=== PATIENT | male | born 1955 | race Caucasian/White ===

== ENCOUNTER 2021-11-08 16:28 | Inpatient (IN) | payer MEDICARE ==
[2021-11-08] MEDS ORDERED: HEPARIN SODIUM 1,000 UN/ML (10ML VL) ONE ×2 (16:49→22:51)
[2021-11-08] MEDS ORDERED: fentaNYL (PF) 50 MCG/ML 2 ML AMP ONE (16:50)
[2021-11-08] MEDS ORDERED: LIDOCAINE 1% INJ 10MG/ML (30 ML VIAL-PF) SQ ONE ×3 (16:52→22:53)
[2021-11-08] MEDS ORDERED: fentaNYL (PF) 50 MCG/ML 2 ML AMP IV ONE (16:54)
[2021-11-08] MEDS ORDERED: SODIUM CHLORIDE 0.9% 1,000 ML IV ONE (17:00)
[2021-11-08] MEDS ORDERED: CLOPIDOGREL 75 MG TAB ONE (17:04)
[2021-11-08] MEDS ORDERED: CLOPIDOGREL 75 MG TAB PO ONE (17:06)
[2021-11-08] MEDS ORDERED: HEPARIN SODIUM 1,000 UN/ML (10ML VL) IV ONE (17:08)
[2021-11-08] MEDS ORDERED: IOPAMIDOL-370 125ML BTL INJ ONE (17:23)
[2021-11-08] MEDS ORDERED: NITROGLYCERIN 1000MCG/10ML SYRINGE INTRACORON ONE (17:26)
[2021-11-08] MEDS ORDERED: FUROSEMIDE 10 MG/ML 4 ML VIAL ONE (17:33)
[2021-11-08] MEDS ORDERED: FUROSEMIDE 10 MG/ML 4 ML VIAL IV ONE (17:34)
[2021-11-08] MEDS ORDERED: IOPAMIDOL-370 100ML BTL INJ ONE (17:41)
[2021-11-08] MEDS ORDERED: RX INFO: IV CONTRAST WAS GIVEN 1 EACH MISC MISCELLANE PRN (17:52)
[2021-11-08] MEDS ORDERED: NITROGLYCERIN SL TABS 0.4 MG TAB SUBLINGUAL PRN (17:52)
[2021-11-08] MEDS ORDERED: ATROPINE SULFATE 0.1 MG/ML 10ML SYRINGE IV PRN (17:52)
[2021-11-08] MEDS ORDERED: MAG HYDROX/AL HYDROX/SIMETH 30 ML CUP PO PRN (17:52)
[2021-11-08] MEDS ORDERED: ZOLPIDEM 5 MG TAB PO PRN (17:52)
[2021-11-08] MEDS ORDERED: SPIRONOLACTONE 25 MG TAB PO SCH (18:00)
[2021-11-08] MEDS ORDERED: SODIUM CHLORIDE 0.9% 1,000 ML in EMPTY BAG 1 BAG IV SCH (18:00)
--- NOTE | 2021-11-08 18:01 | P.CRDCN ---
History of Present Illness Consult date: 11/08/21 History of present illness: History of Present Illness: The patient is a 66-year-old male with a history of hyperlipidemia, pre- diabetes, family history of premature CAD who presented to [facility] with an acute episode of chest discomfort, his EKG showed ST segment elevation inferiorly with ST depression anteriorly. The patient was transferred to [facility] to undergo emergent cardiac catheterization. He had a similar episode for the first time early this week that subsequently resolved and reoccurred today at 1 PM with radiation to the left arm and symptoms of fatigue. The patient is usually active physically, has no exertion al chest discomfort or dyspnea on exertion. He denies any PND, orthopnea or peripheral edema. He has no history of arrhythmia, dizziness or syncope. Medications: Lipitor 10 mg daily Review of Systems: Respiratory: No history of asthma, bronchitis or recent cough. GI: No nausea or vomiting . No history of peptic ulcer disease. No recent GI bleed. : No hematuria or dysuria. Nervous System: No stroke or seizure. Physical Examination: 66-year-old male, evaluated in the cardiac catheterization laboratory with mild discomfort ,Blood pressure 110/70, Heart rate is 105 Head: Normocephalic. Eyes: Sclerae nonicteric. Neck: Good carotid upstroke, no bruit, no jugular venous distention. Lungs: Clear to auscultation anteriorly. Heart: Regular rate and rhythm, S1-S2, no S3, no rub. Holosystolic murmur at the apex, 3/6. Abdomen: Soft nontender, positive bowel sounds no organomegaly. Extremities: No edema, intact distal pulses. Labs: Creatinine 1.3, GFR 55 potassium 4.3 EKG: Sinus mechanism with ST segment elevation in the inferior leads and ST segment depression in the anterior precordial leads Impression: 1. Acute inferoposterior myocardial infarction, patient had an episode of chest discomfort for days ago. The patient has sinus tachycardia 2. Mitral regurgitation murmur, rule out ischemic versus ruptured papillary muscle 3. History of hyperlipidemia 4. Pre-diabetes Plan: 1. Proceed with emergent cardiac catheterization and angioplasty, the procedure as well as the risks and the complications were discussed with the patient who was in full understanding and agreement 2. Obtain an echocardiogram with Doppler 3. Depending on the results of his cardiac catheterization further recommendations will be made 4. Prognosis is guarded 5. Thank you for this consult we will follow with you. Medications and Allergies Allergies Allergy/AdvReac Type Severity Reaction Status Date / Time No Known Allergies Allergy Verified 11/08/21 16:59 Physical Exam Vitals: Intake and Output 11/08/21 11/08/21 11/08/21 06:59 14:59 22:59 Other: Weight 83 kg Results Intake and Output 11/08/21 11/08/21 11/08/21 06:59 14:59 22:59 Other: Weight 83 kg Patient Weight 11/09/21 06:59 Weight 83 kg
--- NOTE | 2021-11-08 18:11 | P.CARDCATH ---
Date of Procedure: 11/08/21 Description of Procedure: Cardiac Catheterization: The patient is a 66-year-old male who presented with an acute inferior posterior myocardial infarction. He has sinus tachycardia at baseline Recommendations were made regarding cardiac catheterization, the risks and the complications were discussed with the patient who is in full understanding and agreement. Procedure Description: Patient was brought to pathology laboratory aide in fasting semi-sedated state after receiving Fentanyl and Benadryl achieiving moderate conscious sedated state. Using Xylocaine Anesthesia and Seldinger technique, a 6-[place] sheath was introduced in the right radial artery . Subsequently, selective coronary angiography was performed using a 6-[place] 4 bend right Rickey guiding catheter for images of the right coronary artery and 5-[place] 3.5 and left Rickey catheter. Multiple views of the coronary artery including hemiaxial views were obtained. The 5-[place] pigtail catheter was used to cross the aortic valve and LVEDP was calculated. An VILLASENOR view of the left ventricle was obtained. Following that, catheter and sheath were removed. Hemostasis was obtained with deployment of TR band . There was no immediate complication. Patient was returned to room in stable condition. Of note, the patient received a total of 5000 units of intravenous heparin as well as intra- arterial verapamil. There was no immediate complications. The patient received Plavix, his ACT was followed. At the end of the procedure there was resolution of his arm and chest discomfort with improvement in his EKG changes. Findings: Left main: This is a size vessel, bifurcating LAD and left circumflex, left main has no high-grade stenosis LAD: This is a size vessel, reaching to the apex giving rise to 3 diagonal branch. In the mid LAD at the takeoff of the second diagonal branch extending to the takeoff of the third diagonal branch there is a 95% stenosis, the rest of the vessel has no high-grade stenosis. Left circumflex: This is a nondominant vessel giving rise to 2 obtuse marginal branch, the first one is proximal, the left circumflex and its branches have no evidence of high-grade stenosis RCA: In this vessel is totally occluded in the distal segment with no antegrade flow Left Ventriculogram: Left ventriculogram revealed inferior wall severe hypokinesis to akinesis there was a suggestion of 2-3+ mitral regurgitation. Ejection fraction is about 35%. Hemodynamics: There was no gradient across the aortic valve, LVEDP 25 mmHg Angioplasty: After cannulating the right coronary artery 0.014 whisper J-wire with a straight fine cross were used to cross the total occlusion, the wire was exchanged to a 0.014 BMW wire was positioned distally, after removing the microcatheter a 2.5 x 12 mm Treck was advanced and multiple inflations up to 10 jeny were done. Following that an BLANCA aspiration catheter was introduced and went on is done without removal of significant material. The balloon was reintroduced and inflations in the distal segment were done, after removing the balloon a 3.0 x 28 mm Xience reddy point stent was advanced deployed and dilated at 14 jeny. After the last inflation and after appropriate wait, the balloon and wire were removed. Images were obtained and repeated those images reveal stable successful stenting. At that time the guiding catheter was removed and images of the left coronary system were obtained. Conclusion: 1. Acutely occluded distal RCA 2. Significant disease in the mid LAD 3. Moderately to severely impaired systolic function 4. Successful stenting of the distal RCA with reduction of stenosis from 100% to 0% Recommendations: The patient will be continued on Plavix and aspirin for at least 1 year. Aggressive coronary risks modifications will be done. A stat echocardiogram will be obtained to evaluate his mitral valve function. The findings and recommendations were discussed with the patient and his family, they are in full understanding and agreement. Depending on his progress patient with require revascularization of the LAD. Duration of sedation is 48 minutes.
[2021-11-08 18:18] LABS: Glucose,Whole Blood 185 mg/dL (70-110)
[2021-11-08 18:41] LABS: Basophils # (A) 0.1 k/uL (0-0.2); Basophils % (A) 1 %; Eosinophils # (A) 0.1 k/uL (0-0.7); Eosinophils % (A) 0 %; HCT 50.9 % (39.0-53.0); HGB 17.4 gm/dL (13.0-17.5); Lymphocytes # (A) 1.2 k/uL (1.0-4.8); Lymphocytes % (A) 8 %; MCH 33.9 pg (25.0-35.0); MCHC 34.2 g/dL (31.0-37.0); MCV 98.9 fL (80.0-100.0); Mean Platelet Volume 7.1; Monocytes # (A) 0.6 k/uL (0-1.0); Monocytes % (A) 4 %; Neutrophils # (A) 12.4 k/uL (1.3-7.7); Neutrophils % (A) 85 %; Platelet Count 334 k/uL (150-450); RBC 5.15 m/uL (4.30-5.90); RDW 12.1 % (11.5-15.5); WBC 14.6 k/uL (3.8-10.6)
--- NOTE | 2021-11-08 19:21 | XR ---
EXAMINATION TYPE: XR chest 1V portable DATE OF EXAM: 11/08/2021 COMPARISON: NONE HISTORY: Short of breath TECHNIQUE: Single view FINDINGS: There is some pulmonary interstitial and airspace edema. There are chest leads. Heart not g rossly enlarged. There is slight blunting of the costophrenic angles. IMPRESSION: Pulmonary edema and minimal pleural fluid could relate to acute heart failure. Also consi mala RDS.
[2021-11-08 20:44] LABS: Appearance,Urine Clear (Clear); Bilirubin,Urine Negative (Negative); Blood,Urine Negative (Negative); Color,Urine Yellow; Glucose,Urine (UA) Negative (Negative); Ketones,Urine 1+ (Negative); Leukocyte Esterase,Urine Negative (Negative); Nitrite,Urine Negative (Negative); Protein,Urine Negative (Negative); Urobilinogen,Urine <2.0 mg/dL (<2.0)
[2021-11-08 20:47] LABS: ALT 23 U/L (4-49); AST 58 U/L (17-59); African American GFR (CKD) >90 (>60 ml/min/1.73 sqM); Albumin 4.1 g/dL (3.5-5.0); Alkaline Phosphatase 76 U/L (38-126); Anion Gap 16 mmol/L; Blood Urea Nitrogen 17 mg/dL (9-20); Carbon Dioxide 14 mmol/L (22-30); Chloride 103 mmol/L (98-107); Glucose 168 mg/dL (74-99); Magnesium 2.2 mg/dL (1.6-2.3); Non-African American GFR(CKD) 81 (>60 ml/min/1.73 sqM); Potassium 5.2 mmol/L (3.5-5.1); Sodium 133 mmol/L (137-145); Total Bilirubin 1.1 mg/dL (0.2-1.3); Total Protein 7.3 g/dL (6.3-8.2)
[2021-11-08 20:59] LABS: Specific Gravity,Urine >1.050 (1.001-1.035)
[2021-11-08] MEDS ORDERED: FUROSEMIDE 10 MG/ML 2 ML VIAL IV SCH (21:00)
[2021-11-08] MEDS ORDERED: ATORVASTATIN 80 MG TAB PO SCH (21:00)
[2021-11-08] MEDS ORDERED: METOPROLOL TARTRATE 12.5 MG TAB PO SCH (21:00)
[2021-11-08 21:39] LABS: Glucose,Whole Blood 203 mg/dL (70-110)
[2021-11-08] MEDS ORDERED: NOREPINEPHRIN 4 MG-0.9% NS PMX 4 MG/250 ML ML IV ONE (22:28)
[2021-11-08] MEDS ORDERED: NOREPINEPHRINE 4 MG in SODIUM CHLORIDE 0.9% 250 ML IV SCH (22:30)
[2021-11-08] MEDS ORDERED: IV FLUID CONTINUATION 900 ML IV ONE (22:54)
[2021-11-08] MEDS: HEPARIN SODIUM 1,000 UN/ML (10ML VL) IV ONE (23:30)
[2021-11-08 23:51] LABS: O2 Sat Blood Gas 92.5 %
[2021-11-08 23:52] LABS: O2 Sat Blood Gas 48.3 %
[2021-11-08 23:54] LABS: O2 Sat Blood Gas 83.9 %
[2021-11-09 00:01] LABS: LDL Cholesterol,Calculated 111.7 mg/dL (0.0-131.0); VLDL Calculation 12.04 mg/dL (5.00-40.00)
[2021-11-09] MEDS ORDERED: LIDOCAINE 1% INJ 10MG/ML (30 ML VIAL-PF) SQ ONE (00:01)
[2021-11-09] MEDS ORDERED: HEPARIN SOD,PORK IN 0.45% NACL 25,000 UNIT in 0.45% NACL 1 250ML.BAG IV ONE (00:05)
--- NOTE | 2021-11-09 00:22 | P.CARDCATH ---
Date of Procedure: 11/09/21 Description of Procedure: Cardiac Catheterization: The patient is a 66-year-old male who presented earlier with an acute ST segment changes involving the inferolateral wall, underwent cardiac catheterization and stenting of the RCA. He had significant disease in the LAD. There was a suspicion of a VSD and later on became hypotensive, hypoxemic and more tachycardic. Recommendations were made regarding cardiac right heart catheterization, and placement of an Impella catheter, the risks and the complications were discussed with the patient who is in full understanding and agreement. Procedure Description: Patient was brought to collaborating supervising physician in fasting semi-sedated state after receiving Fentanyl and Benadryl achieiving moderate conscious sedated state. Using Xylocaine Anesthesia and Seldinger technique, a 6-[place] sheath was introduced in the right femoral artery and an 8-[place] in the right femoral vein. Subsequently a 6-[place] diagnostic right Rickey catheter, 4 bend was introduced and images of the right coronary artery were performed. Subsequently the sheath in the right femoral artery was upsized to 12 and then 14-[place] sheath. A pigtail was introduced into the left ventricle and the Impella wire was introduced in the left ventricle, after removing the pigtail the CP Impella catheter was advanced and secured in place. Good flow was obtained. There was stabilization of the blood pressure, the heart rate in the oxygenation. His symptoms improved. Following that a [place] catheter was introduced and multiple sample and oxygenation were obtained. Following this [place] catheter was removed and the sheath were sutured in place. The patient received 5000 units of intravenous heparin. There was no immediate complications. Findings: RCA: The stented segment is patent there is no evidence of thrombosis was good flow distally Hemodynamics: Pulmonary artery saturation 84%, right atrial saturation 48%, RV saturation 93%. Pulmonic artery systolic pressure 70 with a diastolic of 23 and a mean of 40 mmHg pulmonary Re-wedge pressure A wave of 16 with a V-wave of 30 mmHg and a mean of 18 mmHg. Right ventricle systolic pressure 60 with a diastolic of 16 to mercury. Conclusion: 1. Patent stent in the RCA 2. Evidence of shunting through a VSD 3. Placement of impella catheter 4. Pulmonary hypertension Recommendations: The patient will be continued on supportive care at this point, I contacted the transfer team at [facility] for transfer to tertiary care and probable intervention on his VSD. The findings and recommendations were discussed with the patient and his family. He works in full understanding and agreement. Duration of sedation is 47 minutes.
[2021-11-09] MEDS ORDERED: IOPAMIDOL-370 125ML BTL INJ ONE (00:25)
[2021-11-09] MEDS: HEPARIN SODIUM 1,000 UN/ML (10ML VL) IV ONE (00:34)
[2021-11-09] MEDS ORDERED: HEPARIN SODIUM 1,000 UN/ML (10ML VL) IV PRN (01:24)
[2021-11-09] MEDS ORDERED: HEPARIN SOD,PORK IN 0.45% NACL 25,000 UNIT in 0.45% NACL 1 250ML.BAG IV SCH ×2 (01:30→01:45)
[2021-11-09] MEDS ORDERED: HEPARIN SODIUM,PORCINE 12,500 UNIT in DEXTROSE 5% IN WATER 500 ML IV SCH ×2 (01:45)
[2021-11-09 02:09] LABS: ABG HCO3 12 mmol/L (21-25); ABG Oxygen Saturation 99.5 % (94-97); ABG PCO2 27 mmHg (35-45); ABG PH 7.26 (7.35-7.45); ABG PO2 179 mmHg (83-108); ABG TCO2 13 mmol/L (19-24); Allen Test Performed? Yes
--- NOTE | 2021-11-09 02:22 | XR ---
EXAM: XR Chest, 1 View CLINICAL HISTORY: ITS.REASON XR Reason: Tube placement TECHNIQUE: Frontal view of the chest. COMPARISON: Earlier x-ray 6:54 PM. FINDINGS: Lungs: Bilateral patchy lung opacities right greater than left. Increased density at the left lung base. Pleural space: Unremarkable. No pneumothorax. Heart: Unremarkable. No cardiomegaly. Mediastinum: Unremarkable. Bones/joints: Unremarkable. Tubes, lines and devices: NG tube identified which extends be on the field of view towards in stomach. Endotracheal tube located 7 cm above the paolo. IMPRESSION: NG tube extending beyond the [id number] at least within the proximal stomach. High position of the endotracheal tube. Bilateral opacities.
[2021-11-09] MEDS ORDERED: SODIUM BICARB 8.4% 50 ML SYR (1 MEQ/ML) IV STA (02:40)
[2021-11-09 03:19] LABS: Basophils # (A) 0.1 k/uL (0-0.2); Basophils % (A) 1 %; Eosinophils % (A) 0 %; HCT 43.2 % (39.0-53.0); HGB 14.7 gm/dL (13.0-17.5); Lymphocytes # (A) 1.3 k/uL (1.0-4.8); Lymphocytes % (A) 10 %; MCH 34.1 pg (25.0-35.0); MCHC 33.9 g/dL (31.0-37.0); MCV 100.4 fL (80.0-100.0); Mean Platelet Volume 7.5; Monocytes # (A) 0.5 k/uL (0-1.0); Monocytes % (A) 3 %; Neutrophils # (A) 11.5 k/uL (1.3-7.7); Neutrophils % (A) 85 %; Platelet Count 290 k/uL (150-450); RBC 4.31 m/uL (4.30-5.90); RDW 12.8 % (11.5-15.5); WBC 13.5 k/uL (3.8-10.6)
[2021-11-09 03:27] VITALS: BP 76/21; PULSE 87; RESP 41; TEMP 96.3
[2021-11-09 03:48] LABS: INR 1.2 (<1.2); Prothrombin Time 12.7 sec (9.0-12.0)
[2021-11-09] MEDS ORDERED: ASPIRIN 81 MG PO SCH (09:00)
[2021-11-09] MEDS ORDERED: CHLORHEXIDINE GLUCONATE 15 ML CUP MUCOUS MEM SCH (09:00)
[2021-11-09] MEDS ORDERED: CLOPIDOGREL 75 MG TAB PO SCH (09:00)
--- NOTE | 2021-11-09 14:47 | CA ---
Transthoracic Echo Report Name: Jefferson Oropeza Age: 66 Gender: M : 1955 Exam Date: 11/08/2021 19:03 Exam Location: [facility] Ht (in): 70 Wt (lb): 182 Ordering Physician: Zaina Treviño MD ([id number]) Attending/Referring Phys: Email Deployment Specialist Melida Benedict RDCS Procedure CPT: Indications: PA Cardiac Hx: Technical Quality: Fair Contrast 1: Total Dose (mL): Contrast 2: Total Dose (mL): MEASUREMENTS (Male / Female) Normal Values 2D ECHO LV Diastolic Diameter PLAX 4.5 cm 4.2 - 5.9 / 3.9 - 5.3 cm LV Systolic Diameter PLAX 3.3 cm IVS Diastolic Thickness 1.5 cm 0.6 - 1.0 / 0.6 - 0.9 cm LVPW Diastolic Thickness 1.3 cm 0.6 - 1.0 / 0.6 - 0.9 cm LV Relative Wall Thickness 0.6 RV Internal Dim ED PLAX 3.7 cm M-MODE Aortic Root Diameter MM 3.3 cm LA Systolic Diameter MM 4.9 cm LA Ao Ratio MM 1.5 AV Cusp Separation MM 1.9 cm DOPPLER AV Peak Velocity 128.2 cm/s AV Peak Gradient 6.6 mmHg LVOT Peak Velocity 107.2 cm/s LVOT Peak Gradient 4.6 mmHg MV Area PHT 7.9 cm??? Mitral E Point Velocity 89.4 cm/s Mitral A Point Velocity 68.3 cm/s Mitral E to A Ratio 1.3 MV Deceleration Time 96.5 ms TR Peak Velocity 323.3 cm/s TR Peak Gradient 41.8 mmHg Right Ventricular Systolic Press 46.8 mmHg FINDINGS Left Ventricle Moderately increased left ventricular wall thickness. Left ventricular ejection fraction is estimated at 50-55 %. mild inferobasal and inferoseptal hypokinesis. Muscular Ventricular septal defect with left to right shunt by color Doppler study at the apex. Right Ventricle Mild right ventricular dilatation. Moderate pulmonary hypertension. Right Atrium Normal right atrial size. Left Atrium Mildly increased left atrial area. Mitral Valve Structurally normal mitral valve. No mitral stenosis, regurgitation or prolapse. Aortic Valve No aortic stenosis. No aortic regurgitation. Tricuspid Valve [id number] tricuspid regurgitation. moderate pulmonary hypertension Pulmonic Valve Trace pulmonic regurgitation. Pericardium No pericardial effusion. Aorta Normal size aortic root and proximal ascending aorta. CONCLUSIONS 1. Left ventricular systolic function borderline normal with inferobasal and inferoseptal hypokinesis 2. Evidence of muscular ventricular septal defect with [id number] shunting at the apex 3. Normal appearance of the mitral valve 4. Mild to moderate tricuspid regurgitation with moderate pulmonary hypertension Previewed by: Dr. Zaina Treviño MD (Electronically Signed) Final Date: 09 November 2021 14:46
== END 2021-11-09 04:00 | disposition short-term general hospital (02) | DRG 215 ==
LOC: 2SICU 16:42
PROVIDERS: ADMIT Internal Medicine Geriatric Medicine; ATTEND Internal Medicine Geriatric Medicine
PROC: 3E033XZ Introduction of Vasopressor into Peripheral Vein, Percutaneous Approach (ICD-10-PCS; 2021-11-08)
PROC: 02C03ZZ Extirpation of Matter from Coronary Artery, One Artery, Percutaneous Approach (ICD-10-PCS; 2021-11-08 16:41)
PROC: 027034Z Dilation of Coronary Artery, One Artery with Drug-eluting Intraluminal Device, Percutaneous Approach (ICD-10-PCS; 2021-11-08 16:41)
PROC: B2151ZZ Fluoroscopy of Left Heart using Low Osmolar Contrast (ICD-10-PCS; 2021-11-08 16:41)
PROC: 4A023N7 Measurement of Cardiac Sampling and Pressure, Left Heart, Percutaneous Approach (ICD-10-PCS; 2021-11-08 16:41)
PROC: B2111ZZ Fluoroscopy of Multiple Coronary Arteries using Low Osmolar Contrast (ICD-10-PCS; 2021-11-08 16:41)
PROC: 5A0221D Assistance with Cardiac Output using Impeller Pump, Continuous (ICD-10-PCS; principal; 2021-11-09)
PROC: 4A023N6 Measurement of Cardiac Sampling and Pressure, Right Heart, Percutaneous Approach (ICD-10-PCS; principal; 2021-11-09)
PROC: 02HA3RZ Insertion of Short-term External Heart Assist System into Heart, Percutaneous Approach (ICD-10-PCS; principal; 2021-11-09)
PROC: 0BH17EZ Insertion of Endotracheal Airway into Trachea, Via Natural or Artificial Opening (ICD-10-PCS; 2021-11-09)
PROC: 5A1935Z Respiratory Ventilation, Less than 24 Consecutive Hours (ICD-10-PCS; 2021-11-09)
PROC: 0D9670Z Drainage of Stomach with Drainage Device, Via Natural or Artificial Opening (ICD-10-PCS; 2021-11-09)
DX: I21.11 ST elevation (STEMI) myocardial infarction involving right coronary artery (principal); Q21.0 Ventricular septal defect; I27.20 Pulmonary hypertension, unspecified; Z20.822 Contact with and (suspected) exposure to COVID-19; I34.0 Nonrheumatic mitral (valve) insufficiency; I25.10 Atherosclerotic heart disease of native coronary artery without angina pectoris; E78.00 Pure hypercholesterolemia, unspecified; E78.5 Hyperlipidemia, unspecified; R73.03 Prediabetes; R00.0 Tachycardia, unspecified; Z82.49 Family history of ischemic heart disease and other diseases of the circulatory system
CPT/HCPCS: 71045; 80053; 80061; 81003; 82805; 82810; 83735; 84484; 85018; 85025; 85384; 85610; 85730; 87070; 87205; 87635; 93306; 93456; 93458; 94002